=== PATIENT | male | born 1960 | race Caucasian/White ===

== ENCOUNTER 2021-07-12 09:29 | Outpatient (CLI) | payer BC ==
[2021-07-12 10:31] VITALS: BP 132/62
--- NOTE | 2021-07-12 10:31 | SLEEP CARE CONSULTATION ---
Information from patient questionnaire entered by Khadijah Painting MA. I have reviewed and concur with the information entered by Khadijah Painting MA. This document represents the service I personally performed and the decisions made by , Elizabeth Blanco ARNP. History of Present Illness Service Date and Time: 07/12/2021 0944 Reason for Visit: New patient, Previously diagnosed sleep apnea, sleep apnea on CPAP therapy Chief Complaint: reports: Unrefreshed sleep (when not using cpap), Snoring (when not using cpap), Observed pauses in breathing (when not using cpap), Other (update supplies) Date of Onset: 15 years ago (2005) Usual bedtime: 2100 - 2200 Time it takes to fall asleep: 10 minutes Snores at night: Yes Observed to quit breathing while asleep: Yes Sleeps alone due to snoring: No Number of times waking at night: without cpap 10 + Reasons for waking at night: reports: Snoring (without cpap), Gasping for air (without cpap) Toss, Turn, or Twitch while sleeping: No Recalls having dreams: Yes Usually gets out of bed at: 0700 Feels refreshed in the morning: No (without cpap) Morning headache: No Sleepy or fatigued during the day: No Ever fallen asleep while driving: No Takes day naps: No Dreams during day naps: Yes Prior sleep studies: Yes (No records available) Year and Where: 2010. [place], [place] Type of Sleep Study: Home sleep study Additional HPI information: BENJAMIN BROCK was previously diagnosed to have unknown, AHI unknown, sleep apnea-hypopnea syndrome and comes in today to establish care for CPAP therapy. He had a HST about 10 years ago and does not have a copy of this study. He does not think he can obtain a copy either. - Parasomnia Symptoms Ever been unable to move upon waking from sleep: No Walks in sleep: No Talks in sleep: No Ever acted out dreams in sleep: No Ever felt weak in the knees when startled or emotional: No Bothered by creepy, crawly, restless sensations in legs: No Problems with memory or concentration: No CPAP Compliance Data - Data Reviewed with Patient Average duration of nightly device use: 7 hours 46 minutes Compliance rate %: 100 Current pressure setting (cmH2O): 4-15 Average residual AHI: 0.2 Central apnea: 0.0 Obstructive apnea: 0.1 Average large leak: 5.6 L/min Compliance data discussion: He is using 1800[employer] for his supplies. He is using a full face mask. He has a back up mask. He is using a ResMed S9 that is ten years old and giving him a message that his machine is past it's usefulness. He does not use the humidifie r. Subjective Patient concerns: denies: aerophagia, mask discomfort, air blowing in eyes, mask leak noise, condensation in mask/hose, nasal congestion, dry mouth, nose, throat, epistaxis, other Observed to snore while using device: No Current pressure setting perceived as: comfortable On therapy, patient: reports: sleeping better, awakening more refreshed, being more awake and alert during the day, more rested overall. 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 Patient is and lives in [place]. Have you smoked in the past 12 months: No Alcohol use: Yes Alcohol amount and frequency: 1 - 2 drinks Caffeine use: No Family History Family history of sleep disordered breathing: No Allergies and Home Medications Known drug allergies: No Home medication list reviewed: Yes Allergy and home medication list: Metformin Lipitor Review of Systems Weight gain over past 5 years: 5 Cardiovascular: denies: high blood pressure Gastrointestinal: denies: heartburn Neurological: denies: headaches Endocrine: denies: thyroid disease Physical Exam Vital signs obtained and entered by: Judi Painting CMA, AAMA Blood Pressure: 132/62 (134/68 manual ) Cuff size: wrist Heart Rate: 68 O2 Saturation: 98 Height: 6 ft 1 in Weight: 248 lb Body Mass Index: 32.7 BMI Classification: Obese Impression and Plan 1. Obstructive Sleep Apnea-Hypopnea Syndrome, unknown, with excellent treatment compliance and excellent apnea control. On CPAP therapy, the patient has better sleep quality and is more rested overall. Patient needs to update his device. He does not have a copy of his sleep study. We will do a sleep study to verify diagnosis and severity. Patient instructed not to use his CPAP for one night prior to sleep study. He voiced understanding. Patient's apnea severity and rationale for treatment to reduce apnea, improve sleep quality and reduce cardiovascular and cerebrovascular events was reviewed. I also reviewed the benefit of consistent device use of CPAP for pre-diabetes. * Continue auto CPAP pressure at 4-15 cmH2O * Verify diagnosis with an PSG/HST * Notify me if snoring with mask or feeling that the pressure is too much or too little * Attempt to lose weight * Call this office if any problems using CPAP * Return for follow up after PSG/HST, or sooner if concerns arise Counseling Topics: Spare mask, Weight loss health impact Visit Type: In Office Time Spent with Patient (minutes): 31 Provider Statement: I spent 100% of the Face to Face Visit with the patient with greater than 50% spent counseling the patient and coordination of care.
== END 2021-07-12 09:30 | disposition home or self-care (01) ==
LOC: SC 09:29
PROVIDERS: ATTEND Nurse Practitioner Family
DX: G47.33 Obstructive sleep apnea (adult) (pediatric) (principal); E66.9 Obesity, unspecified; Z68.32 Body mass index [BMI] 32.0-32.9, adult
CPT/HCPCS: 99203; 99212

== ENCOUNTER 2022-11-13 14:46 | Emergency (ER) | payer BC ==
[2022-11-13 15:12] LABS: BASOPHILS # (AUTO) 0.1 10^3/uL (0.0-0.1); BASOPHILS % (AUTO) 0.9 %; EOSINOPHILS # (AUTO) 0.1 10^3/uL (0.0-0.7); HGB - HEMOGLOBIN 15.8 g/dL (14.0-18.0); LYMPHOCYTES # (AUTO) 2.1 10^3/uL (1.5-3.5); MEAN CORPUSCULAR HGB CONC 32.9 g/dL (32.0-36.0); MEAN PLATELET VOLUME 9.6 fL (7.4-11.4); MONOCYTES # (AUTO) 0.7 10^3/uL (0.0-1.0); MONOCYTES % (AUTO) 10.1 %; NEUTROPHILS # (AUTO) 3.4 10^3/uL (1.5-6.6); NEUTROPHILS % (AUTO) 53.5 %; PLT - PLATELET COUNT 222 10^3/uL (130-450); RED BLOOD COUNT 5.65 10^6/uL (4.70-6.10); RED CELL DISTRIBUTION WIDTH 13.1 % (12.0-15.0); WHITE BLOOD COUNT 6.4 x10^3/uL (4.8-10.8)
--- NOTE | 2022-11-13 15:24 | ED Physician Documentation ---
History of Present Illness - Stated complaint Stated Complaint: SOA, LIGHTHEADED - Chief complaint Chief Complaint: Resp - History obtained from History obtained from: Patient - History of Present Illness Timing: How many weeks ago Pain level max: 0 Pain level now: 0 - Additonal information Additional information: 61-year-old male presents to the emergency department with feeling like he is short of breath for the past 2 to 3 weeks. He states that it seemed to worsen today when he was sitting at his desk. He states he feels like he is not getting enough oxygen in his lungs. He does better when he takes a deep breath, worse when he breathes shallow. No chest pain. He states that he does travel to [facility] via airplane about once per month. Occasionally flies to the [facility] as well. He states mild swelling to his calves over the past few weeks as well. He states that this usually resolves with elevating his legs. No fevers. No chills. Review of Systems Constitutional: denies: Fever, Chills GI: denies: Vomiting, Diarrhea Skin: denies: Rash Musculoskeletal: denies: Neck pain, Back pain Neurologic: denies: Headache PD PAST MEDICAL HISTORY - Past Medical History Past Medical History: Yes Cardiovascular: High cholesterol Endocrine/Autoimmune: Type 2 diabetes - Present Medications Home Medications: Ambulatory Orders Medication Instructions Recorded Confirmed Atorvastatin [Lipitor] 20 mg PO QPM 11/13/22 11/13/22 metFORMIN [Glucophage] 500 mg PO BIDWM 11/13/22 11/13/22 - Allergies Allergies/Adverse Reactions: Allergies Allergy/AdvReac Type Severity Reaction Status Date / Time No Known Drug Allergies Allergy Verified 11/13/22 14:55 - Living Situation Living Situation: reports: With family Living Arrangement: reports: At home - Social History Does the pt smoke?: No Does the pt drink ETOH?: Yes Does the pt have substance abuse?: No - Family History Family history: reports: Non contributory PD ED PE NORMAL - Vitals Vital signs reviewed: Yes - General General: Alert and oriented X 3, No acute distress - HEENT HEENT: PERRL, Moist mucous membranes - Neck Neck: Supple, no meningeal sign - Cardiac Cardiac: RRR, No murmur, No gallop, No rub, Strong equal pulses - Respiratory Respiratory: No respiratory distress, Clear bilaterally - Abdomen Abdomen: Soft, Non tender, Non distended - Back Back: No CVA TTP, No spinal TTP - Derm Derm: Warm and dry - Extremities Extremities: No edema, No calf tenderness / cord - Neuro Neuro: Alert and oriented X 3 - Psych Psych: Normal mood, Normal affect Results - Vitals Vitals: Vital Signs - 24 hr 11/13/22 11/13/22 11/13/22 14:51 15:55 17:48 Temperature 36.5 C Heart Rate 71 61 89 Respiratory 16 18 18 Rate Blood Pressure 196/93 H 163/92 H O2 Saturation 100 99 11/13/22 18:09 Temperature 36.2 C L Heart Rate 75 Respiratory 18 Rate Blood Pressure 167/94 H O2 Saturation 98 Oxygen O2 Source Nasal cannula - EKG (time done) 1504 Rate: Rate (enter#) (71) Rhythm: NSR Cowen: Normal Intervals: Normal IA QRS: Normal Ischemia: Non specific changes - Labs Labs: Laboratory Tests 11/13/22 11/13/22 11/13/22 15:04 15:04 15:04 WBC 6.4 RBC 5.65 Hgb 15.8 Hct 48.0 MCV 85.0 MCH 28.0 MCHC 32.9 RDW 13.1 Plt Count 222 MPV 9.6 Neut # (Auto) 3.4 Lymph # (Auto) 2.1 Trigg # (Auto) 0.7 Eos # (Auto) 0.1 Baso # (Auto) 0.1 Absolute Nucleated RBC 0.00 Nucleated RBC % 0.0 Sodium 134 L Potassium 3.8 Chloride 99 L Carbon Dioxide 25 Anion Gap 10.0 BUN 17 Creatinine 1.1 Estimated GFR (MDRD) 68 L Glucose 126 H Calcium 9.8 Total Bilirubin 0.8 AST 30 ALT 46 Alkaline Phosphatase 65 Troponin I High Sens 6.8 B-Natriuretic Peptide Total Protein 7.8 Albumin 4.1 Globulin 3.7 Albumin/Globulin Ratio 1.1 Lipase 33 11/13/22 15:04 WBC RBC Hgb Hct MCV MCH MCHC RDW Plt Count MPV Neut # (Auto) Lymph # (Auto) Trigg # (Auto) Eos # (Auto) Baso # (Auto) Absolute Nucleated RBC Nucleated RBC % Sodium Potassium Chloride Carbon Dioxide Anion Gap BUN Creatinine Estimated GFR (MDRD) Glucose Calcium Total Bilirubin AST ALT Alkaline Phosphatase Troponin I High Sens B-Natriuretic Peptide 17 Total Protein Albumin Globulin Albumin/Globulin Ratio Lipase - Rads (name of study) Chest x-ray Radiology: Final report received, See rad report CT pulmonary angiogram Radiology: Final report received, See rad report PD Medical Decision Making - ED course Complexity details: reviewed results, re-evaluated patient, considered differential, d/w patient, d/w family ED course: Patient's dyspnea resolved in the emergency department. There was not much change with nebulizer treatment. His EKG does not show any significant abnormalities. CBC, CMP and high-sensitivity troponin are negative. BNP is negative. CT pulmonary angiogram does not show any evidence of pulmonary embolus. Does have a small adrenal nodule, patient will follow-up with his doctor for this. Unclear etiology of his symptoms. We will have him follow-up with his doctor for a cardiac stress test and further work-up. Patient is currently asymptomatic. Very well-appearing, nontoxic. Afebrile. No hypoxia. No respiratory distress. Patient counseled regarding signs and symptoms for which I believe and urgent re-evaluation would be necessary. Patient with good understanding of and agreement to plan and is comfortable going home at this time This document was made in part using voice recognition software. While efforts are made to proofread this document, sound alike and grammatical errors may occur. Departure - Departure Disposition: 01 Home, Self Care Clinical Impression: Dyspnea Qualifiers: Dyspnea type: unspecified Qualified Code(s): R06.00 - Dyspnea, unspecified Condition: Good Instructions: ED Dyspnea Shortness of Breath Follow-Up: SADI LUNA ARNP [Primary Care Provider] - Within 1 week Comments: The cause of your symptoms is unclear today. Your cardiac testing is normal. Your x-ray does not show any acute abnormalities. Your CT pulmonary angiogram does not show any evidence of blood clots in the lungs. You do have a small left adrenal nodule, no prior imaging is available for comparison, but recommend outpatient follow-up with a CT or MRI with adrenal protocol ordered by your primary care provider. It is recommended that you have a cardiac stress test with your doctor. FINDINGS: Image quality: Excellent. Pulmonary arteries: Pulmonary arteries are normal in size, and demonstrate no intraluminal filling defects to suggest central pulmonary embolism. Lungs and pleura: Lungs are clear. No pleural effusions or pneumothorax. Central and peripheral airways are patent. Mediastinum: Heart size is normal, without pericardial effusion. No mediastinal or hilar adenopathy. Thoracic aorta is normal in caliber and enhancement. Esophagus is normal in caliber, without hiatal hernia. Bones and chest wall: No suspicious bony lesions. Ribs and thoracic spine appear intact throughout. No axillary or supraclavicular adenopathy. The thyroid is normal in size and there are no incidental findings. Abdomen: 1.3 cm left adrenal nodule is present. No priors are available for comparison. Otherwise, upper abdominal solid organs appear normal in the early arterial phase of enhancement. IMPRESSION: No pulmonary embolism. Lungs are clear. 1.3 cm left adrenal nodule without priors available for comparison. Interval follow-up with CT or MR with adrenal protocol may be obtained as clinically indicated on a nonemergent basis.
--- NOTE | 2022-11-13 15:43 | XRAY Report ---
PROCEDURE: Chest 1 View X-Ray INDICATIONS: dyspnea TECHNIQUE: One view of the chest was acquired. COMPARISON: None. FINDINGS: Surgical changes and devices: None. Lungs and pleura: No pleural effusions or pneumothorax. Lungs are clear. Mediastinum: Mediastinal contours appear normal. Heart size is normal. Bones and chest wall: No suspicious bony lesions. Overlying soft tissues appear unremarkable. IMPRESSION: No acute cardiopulmonary process. Reviewed by: Richard Gottlieb on 11/13/2022 3:41 PM [facility] Approved by: Richard Gottlieb on 11/13/2022 3:41 PM [facility] Station ID: [id number]
[2022-11-13 15:54] LABS: ALBUMIN 4.1 g/dL (3.2-5.5); ALBUMIN/GLOBULIN RATIO 1.1 (1.0-2.2); BILIRUBIN,TOTAL 0.8 mg/dL (0.2-1.0); CALCIUM 9.8 mg/dL (8.5-10.3); CREATININE 1.1 mg/dL (0.6-1.2); POTASSIUM 3.8 mmol/L (3.5-5.0); TOTAL PROTEIN 7.8 g/dL (6.7-8.2)
[2022-11-13] MEDS ORDERED: iohexoL-300 100 ML VIAL ONE (16:04)
[2022-11-13] MEDS ORDERED: iohexoL-300 100 ML VIAL IVP ONE (16:30)
--- NOTE | 2022-11-13 16:41 | CT Report ---
PROCEDURE: ANGIO CHEST W/WO INDICATIONS: dyspnea CONTRAST: 80mL Omni 300 TECHNIQUE: After the administration of intravenous contrast, 2 mm axial images were acquired from the pulmonary apices to the posterior costophrenic angles during the arterial phase. In addition, 1 mm lung kernel and 5 mm soft tissue kernel reconstructions were performed. 3-dimensional coronal oblique maximum int ensity projection (MIP) reformats, 8 mm axial MIP, and 5 mm coronal and sagittal MPR reformats were t hen performed through the thorax. For radiation dose reduction, the following was used: automated exp osure control, adjustment of mA and/or kV according to patient size. COMPARISON: Chest x-ray 11/13/2022 FINDINGS: Image quality: Excellent. Pulmonary arteries: Pulmonary arteries are normal in size, and demonstrate no intraluminal filling d efects to suggest central pulmonary embolism. Lungs and pleura: Lungs are clear. No pleural effusions or pneumothorax. Central and peripheral ai rways are patent. Mediastinum: Heart size is normal, without pericardial effusion. No mediastinal or hilar adenopathy . Thoracic aorta is normal in caliber and enhancement. Esophagus is normal in caliber, without hiat al hernia. Bones and chest wall: No suspicious bony lesions. Ribs and thoracic spine appear intact throughout. No axillary or supraclavicular adenopathy. The thyroid is normal in size and there are no incident al findings. Abdomen: 1.3 cm left adrenal nodule is present. No priors are available for comparison. Otherwise, up per abdominal solid organs appear normal in the early arterial phase of enhancement. IMPRESSION: No pulmonary embolism. Lungs are clear. 1.3 cm left adrenal nodule without priors available for comparison. Interval follow-up with CT or MR with adrenal protocol may be obtained as clinically indicated on a nonemergent basis. CLINICAL RECOMMENDATION STATEMENTS: In patients <35 years with an ITN detected on CT, MRI, or extrathyroidal ultrasound, the Committee re commends further evaluation with dedicated thyroid ultrasound if the nodule is "e1 cm and has no susp icious imaging features, and if the patient has normal life expectancy. In patients "e35 years with an ITN detected on CT, MRI, or extrathyroidal ultrasound, the Committee r ecommends further evaluation with dedicated thyroid ultrasound if the nodule is "e1.5 cm and has no s uspicious imaging features, and if the patient has normal life expectancy. (ACR, 2014) Reviewed by: Kita Reed MD on 11/13/2022 4:40 PM PST Approved by: Kita Reed MD on 11/13/2022 4:40 PM PST Station ID: [id number]
[2022-11-13] MEDS ORDERED: ALBUTEROL NEB 2.5 MG/3 ML INH STA (17:21)
[2022-11-13 18:11] VITALS: BP 167/94
== END 2022-11-13 18:18 | disposition home or self-care (01) ==
LOC: ED 14:46
DX: R06.00 Dyspnea, unspecified (principal); E27.8 Other specified disorders of adrenal gland
CPT/HCPCS: 36415; 71045; 71275; 80053; 83690; 83880; 84484; 85025; 93005; 94640; 99284; Q9967

== ENCOUNTER 2022-11-29 16:54 | Outpatient (CLI) | payer BC ==
[~2022-11-29 16:54] MED LIST: GADOBUTROL 15 MMOL/15 ML VIAL ONE
[2022-11-29] MEDS ORDERED: GADOBUTROL 15 MMOL/15 ML VIAL IVP ONE (18:18)
--- NOTE | 2022-11-30 09:23 | MRI Report ---
PROCEDURE: ABDOMEN W/WO INDICATIONS: ADRENAL NODULE CONTRAST: gadavist 10.9ml TECHNIQUE: Coronal ultra fast SE, axial 2D spoiled GE in- and [id number]; axial breath-hold T2 fast SE. Dynam ic axial ultra fast GE during the administration of contrast; post-contrast coronal ultra fast GE or 2D spoiled GE with fat saturation from the hepatic dome to the iliac crests. Optional diffusion weig hted imaging and ADC may be performed. COMPARISON: None FINDINGS: Image quality: Excellent. Lung bases: No basal pleural effusions. Heart size is normal. Liver: Unremarkable. Gallbladder: Unremarkable. Spleen: Unremarkable. Kidneys: Unremarkable. Adrenals: 1.5 cm left adrenal nodule with signal dropout on the out of phase sequence, most consisten t with a lipid rich adenoma. Pancreas: Unremarkable. Nodes and vessels: No retroperitoneal or mesenteric adenopathy by size criteria. Aorta and inferior vena cava are normal in size. Bowel and peritoneum: Unenhanced bowel loops are normal in caliber. No free fluid. Bones and soft tissues: No ventral hernias. Bone marrow is normal in overall signal. IMPRESSION: 1.5 cm left adrenal nodule with signal dropout on the out of phase sequence, most consistent with a l ipid rich adenoma. Reviewed by: Richard Gottlieb on 11/30/2022 9:21 AM PDT Approved by: Richard Gottlieb on 11/30/2022 9:21 AM PDT Station ID: [id number]
== END 2022-11-29 16:55 | disposition home or self-care (01) ==
LOC: DI 16:54
PROVIDERS: ATTEND Nurse Practitioner Family
DX: E27.8 Other specified disorders of adrenal gland (principal)
CPT/HCPCS: 74183; A9585